=== PATIENT | female | born 1970 | race Caucasian/White ===

== ENCOUNTER 2016-07-15 18:15 | Emergency (ER) | payer SELFPAY | END 2016-07-15 18:42 | disposition home or self-care (01) | LOC: MADERS 18:15 | DX: K04.7 Periapical abscess without sinus (principal); F41.9 Anxiety disorder, unspecified; F32.9 Major depressive disorder, single episode, unspecified; F17.210 Nicotine dependence, cigarettes, uncomplicated | CPT/HCPCS: 99282 ==

== ENCOUNTER 2016-08-03 15:30 | Emergency (ER) | payer SELFPAY ==
[2016-08-03] MEDS ORDERED: HYDROcodone/Acetaminophen 5/325 mg Tablet ONE (15:56)
--- NOTE | 2016-08-03 16:54 | RAD ---
SACRUM AND COCCYX TWO VIEWS 08/03/16 HISTORY: Sacral pain. FINDINGS: Sacral alae are intact. No displaced fractures are evident. IMPRESSION: No acute osseous abnormalities are demonstrated. POS: [facility]
== END 2016-08-03 16:44 | disposition home or self-care (01) ==
LOC: MADERS 15:30
DX: S30.0XXA Contusion of lower back and pelvis, initial encounter (principal); G43.909 Migraine, unspecified, not intractable, without status migrainosus; F41.9 Anxiety disorder, unspecified; F32.9 Major depressive disorder, single episode, unspecified; F17.210 Nicotine dependence, cigarettes, uncomplicated; W01.0XXA Fall on same level from slipping, tripping and stumbling without subsequent striking against object, initial encounter
CPT/HCPCS: 72220

== ENCOUNTER 2016-10-09 15:12 | Emergency (ER) | payer SELFPAY ==
[2016-10-09 15:57] LABS: #Basophils 0.1 thou/uL (0.0-0.2); #Eosinphils 0.1 thou/uL (0.0-0.7); #Lymphocytes 3.5 thou/uL (1.20-3.40); #Monocytes 0.7 thou/uL (0.11-0.59); #Neutrophils 5.2 thou/uL (1.40-6.50); %Basophils 1.1 % (0.0-1.0); %Lymphocytes 36.6 % (21.0-51.0); %Monocytes 7.1 % (0.0-10.0); %Neutrophils 54.4 % (42.0-75.0); Hemoglobin 13.7 g/dL (12.0-16.0); Mean Corpuscular HGB CONC 33.8 g/dL (32.0-36.0); Mean Corpuscular Hemoglobin 31.4 pg (27.0-31.0); Mean Corpuscular Volume 92.9 fl (81.0-99.0); Mean Platelet Volume 6.5 fL (7.4-10.4); Platelet Count 254 thou/uL (130-400); RBC Distribution Width 12.5 % (11.5-14.5); Red Blood Cell (RBC) Count 4.36 mill/uL (4.20-5.40); White Blood Cell (WBC) Count 9.6 thou/uL (4.8-10.8)
[2016-10-09 16:04] LABS: INR-International Normal Ratio 0.9; PTT 30.7 SEC (22.9-36.1); Prothrombin Time 12.9 SEC (12.0-14.7)
[2016-10-09 16:12] LABS: ALT (SGPT) 12 U/L (8-55); AST (SGOT) 13 U/L (5-34); Albumin 4.7 g/dL (3.5-5.0); Alkaline Phosphatase 80 U/L (40-150); Anion Gap 13 mmol/L (10-20); BUN (Urea Nitrogen) 18 mg/dL (7.0-18.7); Bilirubin, Total 0.3 mg/dL (0.2-1.2); CK (CPK) 77 U/L (29-168); Calc. Creatinine Clearance 0 mL/min (70-130); Carbon Dioxide 24 mmol/L (22-29); Chloride 105 mmol/L (98-107); Estimated GFR-MDRD 88; Globulin 3.2 g/dL (2.4-3.5); Glucose 73 mg/dL (70-105); Magnesium 1.8 mg/dL (1.6-2.6); Potassium 3.4 mmol/L (3.5-5.1); Protein, Total 7.9 g/dL (6.0-8.3); Sodium 139 mmol/L (136-145)
[2016-10-09 16:13] LABS: CKMB 0.9 ng/mL (0-6.6)
--- NOTE | 2016-10-09 16:24 | RAD ---
PORTABLE CHEST: Comparison: 05-22-14 History: Shortness of breath. FINDINGS: Heart size and mediastinum within normal limits. Lungs are clear of infiltrates. There is evidence o f old granulomatous disease. IMPRESSION: No active intrathoracic disease. POS: [facility]
[2016-10-09] MEDS ORDERED: AMOXicillin 250 MG CAP ONE (16:47)
[2016-10-09] MEDS ORDERED: methylPREDNISolone Sod Succ/PF 125 MG/2 ML VIAL ONE (16:47)
[2016-10-09] MEDS ORDERED: Dexamethasone 10 MG/ML VIAL ONE (16:47)
[2016-10-09] MEDS ORDERED: Ondansetron HCl/PF 4 MG/2 ML Vial ONE (16:47)
[2016-10-09] MEDS ORDERED: Ketorolac Tromethamine 30 MG/ML VIAL ONE (16:47)
== END 2016-10-09 17:15 | disposition home or self-care (01) ==
LOC: MADERS 15:12
DX: J20.9 Acute bronchitis, unspecified (principal); F32.9 Major depressive disorder, single episode, unspecified; F41.9 Anxiety disorder, unspecified; F17.210 Nicotine dependence, cigarettes, uncomplicated
CPT/HCPCS: 71010; 80053; 82553; 83735; 83880; 84484; 85025; 85610; 85730; 93005; 94760; 96374; 96375; J1100; J1885; J2270; J2405; J2930

== ENCOUNTER 2016-12-22 13:05 | Emergency (ER) | payer SELFPAY ==
[2016-12-22] MEDS ORDERED: HYDROcodone/Acetaminophen 10/325 mg Tablet ONE (13:48)
[2016-12-22] MEDS ORDERED: Ibuprofen 800 MG TAB ONE (13:49)
[2016-12-22] MEDS ORDERED: Dexamethasone 4 MG TAB ONE (13:49)
--- NOTE | 2016-12-22 15:14 | RAD ---
CHEST 2 VIEWS: Date: 12/22/16 HISTORY: Pain. COMPARISON: Chest 1 view dated 10/09/16. FINDINGS: Numerous scattered granulomas present throughout the lungs is similar. No focal air space consolidat ion, pneumothorax, or effusion. Lungs are hyperinflated. No acute osseous abnormality. IMPRESSION: 1. Evidence of healed granulomatous disease. No acute intrathoracic abnormality. 2. Lung hyperinflation. POS: [facility]
== END 2016-12-22 14:01 | disposition home or self-care (01) ==
LOC: MADERS 13:05
DX: S20.211A Contusion of right front wall of thorax, initial encounter (principal); J40 Bronchitis, not specified as acute or chronic; J44.9 Chronic obstructive pulmonary disease, unspecified; G43.909 Migraine, unspecified, not intractable, without status migrainosus; F32.9 Major depressive disorder, single episode, unspecified; F41.9 Anxiety disorder, unspecified; F17.210 Nicotine dependence, cigarettes, uncomplicated; W22.8XXA Striking against or struck by other objects, initial encounter; Y92.009 Unspecified place in unspecified non-institutional (private) residence as the place of occurrence of the external cause
CPT/HCPCS: 71020; J8540

== ENCOUNTER 2017-02-21 20:14 | Emergency (ER) | payer SELFPAY ==
[2017-02-21] MEDS ORDERED: traMADol HCl 50 MG TAB ONE (20:35)
[2017-02-21] MEDS ORDERED: Acetaminophen 500 MG TAB ONE (20:35)
[2017-02-21] MEDS ORDERED: Ibuprofen 800 MG TAB ONE (20:35)
== END 2017-02-21 20:45 | disposition home or self-care (01) ==
LOC: MADERS 20:14
DX: K02.9 Dental caries, unspecified (principal); K03.81 Cracked tooth; I10 Essential (primary) hypertension; G43.909 Migraine, unspecified, not intractable, without status migrainosus; F32.9 Major depressive disorder, single episode, unspecified; F41.9 Anxiety disorder, unspecified; F17.210 Nicotine dependence, cigarettes, uncomplicated; Z79.899 Other long term (current) drug therapy
CPT/HCPCS: 99282

== ENCOUNTER 2017-11-29 09:59 | Emergency (ER) | payer SELFPAY ==
[~2017-11-29 09:59] MED LIST: Sodium Chloride 0.9% 1,000 ML BAG ONE
[2017-11-29] MEDS ORDERED: Albuterol Sulfate 2.5 mg/0.5 ml Neb ONE (10:22)
[2017-11-29] MEDS ORDERED: methylPREDNISolone Sod Succ/PF 125 MG/2 ML VIAL ONE (10:51)
[2017-11-29 11:11] LABS: Band 7 % (5-11); Eosinophils 1 % (0-10); Hemoglobin 13.5 g/dL (12.0-16.0); Lymphocytes 27 % (21-51); MDiff Complete? YES; Mean Corpuscular HGB CONC 32.7 g/dL (32.0-36.0); Mean Corpuscular Hemoglobin 29.7 pg (27.0-31.0); Mean Corpuscular Volume 90.6 fL (78.0-98.0); Mean Platelet Volume 5.3 fL (7.4-10.4); Monocytes 6 % (0-10); Neutrophil 59 % (42-75); PLT Morphology Comment Appears Adequate; Platelet Count 322 thou/uL (130-400); RBC Distribution Width 12.2 % (11.5-14.5); Red Blood Cell (RBC) Count 4.54 mill/uL (4.20-5.40); White Blood Cell (WBC) Count 10.7 thou/uL (4.8-10.8)
[2017-11-29 11:12] LABS: ALT (SGPT) 20 U/L (8-55); AST (SGOT) 10 U/L (5-34); Albumin 4.2 g/dL (3.5-5.0); Alkaline Phosphatase 89 U/L (40-150); Anion Gap 18 mmol/L (10-20); BUN (Urea Nitrogen) 16 mg/dL (7.0-18.7); Bilirubin, Total 0.6 mg/dL (0.2-1.2); Calc. Creatinine Clearance 0 mL/min (70-130); Calcium 9.5 mg/dL (7.8-10.44); Carbon Dioxide 21 mmol/L (22-29); Chloride 101 mmol/L (98-107); Estimated GFR-MDRD 78; Glucose 102 mg/dL (70-105); Potassium 3.7 mmol/L (3.5-5.1); Protein, Total 7.2 g/dL (6.0-8.3); Sodium 136 mmol/L (136-145)
[2017-11-29 11:15] LABS: CKMB 0.5 ng/mL (0-6.6); Troponin I Less than 0.010 ng/mL (< 0.028)
[2017-11-29] MEDS ORDERED: Ketorolac Tromethamine 30 MG/ML VIAL ONE (12:33)
--- NOTE | 2017-11-29 13:25 | RAD ---
TWO VIEWS CHEST: DATE: 11/29/17. COMPARISON: 12/22/16. HISTORY: Dyspnea. FINDINGS: There are numerous small calcified nodules scattered throughout both lungs, consistent with prior gra nulomatous disease, as seen on prior radiograph and CT. There is pulmonary hyperinflation and increa sed linear interstitial density bilaterally, stable as well. There is no pneumothorax, pleural fluid, lobar consolidation, or alveolar edema. IMPRESSION: Evidence of prior granulomatous disease. Interstitial prominence and pulmonary hyperinflation sugges t chronic obstructive pulmonary disease in the proper clinical setting. POS: [facility]
== END 2017-11-29 13:01 | disposition short-term general hospital (02) ==
LOC: MADERS 09:59
DX: J44.1 Chronic obstructive pulmonary disease with (acute) exacerbation (principal); F41.9 Anxiety disorder, unspecified; I10 Essential (primary) hypertension; J44.9 Chronic obstructive pulmonary disease, unspecified; G43.909 Migraine, unspecified, not intractable, without status migrainosus; F32.9 Major depressive disorder, single episode, unspecified; F17.210 Nicotine dependence, cigarettes, uncomplicated
CPT/HCPCS: 36415; 71046; 80053; 82553; 83605; 83880; 84484; 85025; 87040; 93005; 94760; 96365; 96375; J1885; J1956; J2930; J7050; J7611